=== PATIENT | female | born 1935 ===

== ENCOUNTER 2017-08-29 04:49 | Emergency (ER) | payer MEDICARE ==
[2017-08-29 05:17] VITALS: TEMP 98; O2SAT 98
--- NOTE | 2017-08-29 05:25 | ED PDOC ---
Upper Extremity Pain/Injury Time Seen by Provider: 08/29/17 05:02 Chief Complaint (Nursing): Upper Extremity Problem/Injury Chief Complaint (Provider): Left posterior shoulder/back pain x 4 days History Per: Patient History/Exam Limitations: no limitations Onset/Duration Of Symptoms: Days Current Symptoms Are (Timing): Still Present Quality: Sharp Severity: Moderate Pain Scale Rating Of: 7 Additional Complaint(s): Pt states 4 days ago after taking a shower she was putting lotion on and made a sudden movement resulting in pain in the upper left back. Pt denies chest pain. PT denies SOB, diaphoresis etc. Pt states she was given in injection of pain medication at [facility] but it did not help. States she was also told to take aleve which she states is not helping the pain. Past Medical History Reviewed: Historical Data, Nursing Documentation, Vital Signs Vital Signs: Last Vital Signs Temp 98 F 08/29/17 05:09 Pulse 77 08/29/17 05:09 Resp 16 08/29/17 05:09 BP 175/78 H 08/29/17 05:09 Pulse Ox 98 08/29/17 05:09 - Medical History PMH: HTN Denies: Chronic Kidney Disease - Surgical History Surgical History: No Surg Hx - Family History Family History: States: No Known Family Hx - Living Arrangements Living Arrangements: With Family - Social History Current smoker - smoking cessation education provided: No - Allergies Allergies/Adverse Reactions: Allergies Allergy/AdvReac Type Severity Reaction Status Date / Time No Known Allergies Allergy Verified 08/29/17 05:15 Review of Systems ROS Statement: Except As Marked, All Systems Reviewed And Found Negative Musculoskeletal: Positive for: Back Pain (Upper left ) Physical Exam - Reviewed Nursing Documentation Reviewed: Yes Vital Signs Reviewed: Yes - Physical Exam Appears: Positive for: Well, Non-toxic, No Acute Distress Head Exam: Positive for: ATRAUMATIC, NORMAL INSPECTION, NORMOCEPHALIC Skin: Positive for: Normal Color, Warm, DRY Eye Exam: Positive for: Normal appearance ENT: Positive for: Normal ENT Inspection Neck: Positive for: Normal, Painless ROM Cardiovascular/Chest: Positive for: Regular Rate, Rhythm Respiratory: Positive for: Normal Breath Sounds. Negative for: Accessory Muscle Use, Respiratory Distress Back: Positive for: Normal Inspection, Other (Tenderness between spine and scapula on the left ) Extremity: Positive for: Normal ROM Neurologic/Psych: Positive for: Alert, Oriented - ECG O2 Sat by Pulse Oximetry: 98 Medical Decision Making Medical Decision Makin pt states she is not feeling better. Pt endorsed to Dr. Orozco at 0600 Disposition - Clinical Impression Clinical Impression: Upper back pain - Patient ED Disposition Is Patient to be Admitted: Transfer of Care - Disposition Disposition: Transfer of Care Disposition Time: 06:05 Condition: GOOD Forms: [employer] (Icelandic)
--- NOTE | 2017-08-29 06:08 | ED PDOC ---
- ECG O2 Sat by Pulse Oximetry: 98 (RA) Pulse Ox Interpretation: Normal Medical Decision Making Medical Decision Making: Time: 0600 --Patient was endorsed to provider by Sully Higginbotham PA-C. Pending xray results. Scribe Attestation: Documented by Holli Myers, acting as a scribe for Jacquelyn Orozco MD. Provider Scribe Attestation: All medical record entries made by the Scribe were at my direction and personally dictated by me. I have reviewed the chart and agree that the record accurately reflects my personal performance of the history, physical exam, medical decision making, and the department course for this patient. I have also personally directed, reviewed, and agree with the discharge instructions and disposition. 7.45a - patient still in pain but admits that it is better. Pain is localized to the left scapular area. x-ray of the chest is normal. x-ray left shoulder shows osteopenia and calcium deposits in the joint. will give trial of lidoderm and tramadol. 10.00a - patient is feeling better. Though she still c/o pain, she does not appear to be in discomfort. She reported to RN and me separately that her a month ago. She is moving her shoulder freely. She mentioned about having trouble sleeping. Will continue with NSAIDs, muscle relaxant, Lidoderm and trial of Restoril. Disposition Doctor Will See Patient In The: Office Counseled Patient/Family Regarding: Diagnosis, Need For Followup, Rx Given - Clinical Impression Clinical Impression: Upper back pain, Muscle spasm - POA Present On Arrival: None - Disposition Referrals: Luis Houston MD [Family Provider] - Disposition: Routine/Home Disposition Time: 10:21 Condition: IMPROVED Prescriptions: Cyclobenzaprine [Cyclobenzaprine HCl] 10 mg PO TID #30 tab Lidocaine 5% [Lidoderm] 1 patch TD DAILY #10 patch Naproxen [Naprosyn] 500 mg PO BID PRN #20 tablet PRN Reason: Pain, Moderate (4-7) Temazepam [Restoril] 15 mg PO HS #14 capsule Instructions: Musculoskeletal Pain (ED) Forms: [employer] (Malay)
[2017-08-29] MEDS ORDERED: Lidocaine 5% Patch TD SCH (09:00)
--- NOTE | 2017-08-29 10:17 | RAD ---
HISTORY: upper back pain, left COMPARISON: None available. TECHNIQUE: Chest PA and lateral FINDINGS: Examination limited by habitus. LUNGS: No focal consolidation. Please note that chest x-ray has limited sensitivity for the detection of pulmonary masses. PLEURA: No significant pleural effusion identified. No definite pneumothorax . CARDIOVASCULAR: Heart size within normal limits. Ectatic aorta. Atherosclerotic calcifications. OSSEOUS STRUCTURES: Osseous demineralization. Degenerative changes of the spine. VISUALIZED UPPER ABDOMEN: Unremarkable. OTHER FINDINGS: None. IMPRESSION: No focal consolidation, significant pleural effusion, or definite pneumothorax identified.
--- NOTE | 2017-08-29 10:42 | RAD ---
PROCEDURE: Radiographs of the Left Shoulder HISTORY: upper left back pain COMPARISON: Left shoulder radiographs performed 05/15/16 FINDINGS: BONES: No acute displaced fracture. The distal clavicle and underlying ribs appear intact. Osseous demineralization. Degenerative changes. Inferior medial osteophyte. JOINTS: No acute dislocation. The glenohumeral joint space narrowing. Acromioclavicular arthropathy. SOFT TISSUES: Soft tissues appear unremarkable. No evidence of radiopaque foreign body. IMPRESSION: Osseous demineralization. Degenerative changes. No acute displaced fracture or dislocation evident. If symptoms persist or if there is continued clinical concern, x-ray follow-up in 7-10 days should be considered.
[2017-08-29 10:55] VITALS: BP 130/70; PULSE 76; RESP 20
== END 2017-08-29 10:55 | disposition home or self-care (01) ==
LOC: H.ER 04:49
DX: M54.9 Dorsalgia, unspecified (principal); I10 Essential (primary) hypertension
CPT/HCPCS: 71020; 73030; 96372; 99283; J1885